=== PATIENT | male | born 1980 | race Caucasian/White ===

== ENCOUNTER 2020-09-06 17:12 | Inpatient (IN) | payer OTHER ==
[2020-09-06 17:51] LABS: HEMOGLOBIN 14.9 gm/dl (14.0-17.5); RED BLOOD COUNT 5.25 M/UL (4.20-5.50); WHITE BLOOD COUNT 11.5 K/UL (4.5-11.0)
[2020-09-06 18:03] LABS: BUN/CREATININE RATIO 13 (0-10)
[2020-09-06] MEDS ORDERED: SERTRALINE HCL50 MG PO (19:34)
[2020-09-06] MEDS ORDERED: LEVETIRACETAM750 MG PO (19:34)
[2020-09-06] MEDS ORDERED: OMEPRAZOLE40 MG PO (19:35)
[2020-09-06] MEDS ORDERED: MAGNESIUM OXID400 M1 PO (19:35)
[2020-09-06] MEDS ORDERED: VITAMIN D3125 MCG PO (19:35)
[2020-09-06] MEDS ORDERED: LISINOPRIL40 MG PO (19:36)
[2020-09-06] MEDS ORDERED: METOPROLOL SUC100 MG PO (19:36)
[2020-09-06] MEDS ORDERED: VENTOLIN HFA 66.7 GM INH (19:36)
[2020-09-06] MEDS ORDERED: AMLODIPINE BESY10 MG PO (19:36)
[2020-09-06] MEDS ORDERED: TRAZODONE HCL150 MG PO (19:37)
[2020-09-06] MEDS ORDERED: VISTARIL 50 MG50 MG PO (19:37)
[2020-09-07 03:19] LABS: HEMOGLOBIN 14.4 gm/dl (14.0-17.5); RED BLOOD COUNT 5.18 M/UL (4.20-5.50); WHITE BLOOD COUNT 8.8 K/UL (4.5-11.0)
[2020-09-07 04:11] LABS: BUN/CREATININE RATIO 21 (0-10)
[2020-09-07] MEDS ORDERED: DECADRON6 MG PO (11:31)
[2020-09-07] MEDS ORDERED: TESSALON PERLE100 MG PO (11:31)
[2020-09-07] MEDS ORDERED: DOXYCYCLINE HY100 MG PO (11:31)
== END 2020-09-07 13:38 | disposition home or self-care (01) | DRG 177 ==
LOC: ER1 17:12 → CDU 19:04 → M/S 20:39
PROVIDERS: Emergency Medicine; ADMIT Internal Medicine
PROC: 8E0ZXY6 Isolation (ICD-10-PCS; principal; 2020-09-06)
PROC: XW033E5 Introduction of Remdesivir Anti-infective into Peripheral Vein, Percutaneous Approach, New Technology Group 5 (ICD-10-PCS; 2020-09-06)
DX: U07.1 COVID-19 (principal); J12.82 Pneumonia due to coronavirus disease 2019; J44.0 Chronic obstructive pulmonary disease with (acute) lower respiratory infection; E87.3 Alkalosis; I10 Essential (primary) hypertension; Z80.8 Family history of malignant neoplasm of other organs or systems; R09.02 Hypoxemia
CPT/HCPCS: 36415; 36600; 71045; 80053; 82550; 82553; 82728; 82803; 83605; 83690; 83735; 83874; 83880; 84100; 84484; 85025; 85379; 85610; 85730; 86140; 87040; 90471; 93005; 94664; 94760; 96372; 96374; 99285; J0696; J1100; J1650; J7030; Q9967; U0002